=== PATIENT | female | born 1995 | race Caucasian/White ===

== ENCOUNTER → 2019-04-25 | Outpatient (REF) | payer OTHER | LOC: M SFHCLERA 13:18 | PROVIDERS: ATTEND Physician Assistant | DX: J02.9 Acute pharyngitis, unspecified (principal) ==

== ENCOUNTER 2021-02-06 16:21 | Emergency (ER) | payer OTHER ==
[~2021-02-06] VITALS: Ht 175.3 cm; Wt 72.3 kg
[2021-02-06 16:23] VITALS: BP 134/90
--- OUTSIDE RECORDS SUMMARY | 2021-02-06 16:28 | CCD ---
Author Author [facility] Organization [facility] Address Unknown Phone Unavailable Care Team Providers Care Textile Engraver Name Role Phone Maring, Jimmy PA Unavailable Unavailable Maring, Jimmy PA Unavailable Unavailable Maring, Jimmy PA Unavailable Unavailable Maring, Jimmy PA Unavailable Unavailable Maring, Jimmy PA Unavailable Unavailable Maring, Jimmy PA Unavailable Unavailable Maring, Jimmy PA Unavailable Unavailable Maring, Jimmy PA Unavailable Unavailable Maring, Jimmy PA Unavailable Unavailable Maring, Jimmy PA Unavailable Unavailable Maring, Jimmy PA Unavailable Unavailable Maring, Jimmy PA Unavailable Unavailable Maring, Jimmy PA Unavailable Unavailable Maring, Jimmy PA Unavailable Unavailable Maring, Jimmy PA Unavailable Unavailable Maring, Jimmy PA Unavailable Unavailable RICHIE, A. RESEARCH CHEF ELISA Unavailable [phone] RICHIE, A. RESEARCH CHEF ELISA Unavailable [phone] RICHIE, A. RESEARCH CHEF ELISA Unavailable [phone] RICHIE, A. RESEARCH CHEF ELISA Unavailable [phone] RICHIE, A. RESEARCH CHEF ELISA Unavailable [phone] RICHIE, A. RESEARCH CHEF ELISA Unavailable [phone] RICHIE, A. RESEARCH CHEF ELISA Unavailable [phone] RICHIE, A. RESEARCH CHEF ELISA Unavailable [phone] RICHIE, A. RESEARCH CHEF ELISA Unavailable [phone] RICHIE, A. RESEARCH CHEF ELISA Unavailable [phone] RICHIE, A. RESEARCH CHEF ELISA Unavailable [phone] RICHIE, A. RESEARCH CHEF ELISA Unavailable [phone] RICHIE, A. RESEARCH CHEF ELISA Unavailable [phone] RICHIE, A. RESEARCH CHEF ELISA Unavailable [phone] RICHIE, A. RESEARCH CHEF ELISA Unavailable [phone] RICHIE, A. RESEARCH CHEF ELISA Unavailable [phone] Re-disclosure Warning The records that you are about to access may contain information from federally-assisted alcohol or drug abuse programs. If such information is present, then the following federally mandated warning applies: This information has been disclosed to you from records protected by federal confidentiality rules (42 CFR part 2). The federal rules prohibit you from making any further disclosure of this information unless further disclosure is expressly permitted by the written consent of the person to whom it pertains or as otherwise permitted by 42 CFR part 2. A general authorization for the release of medical or other information is NOT sufficient for this purpose. The Federal rules restrict any use of the information to criminally investigate or prosecute any alcohol or drug abuse patient.The records that you are about to access may contain highly sensitive health information, the redisclosure of which is protected by Article 27-F of the [facility] Public Health law. If you continue you may have access to information: Regarding HIV / AIDS; Provided by facilities licensed or operated by the [facility] Office of Mental Health; or Provided by the [facility] Office for People With Developmental Disabilities. If such information is present, then the following [facility] mandated warning applies: This information has been disclosed to you from confidential records which are protected by state law. State law prohibits you from making any further disclosure of this information without the specific written consent of the person to whom it pertains, or as otherwise permitted by law. Any unauthorized further disclosure in violation of state law may result in a fine or nursing home sentence or both. A general authorization for the release of medical or other information is NOT sufficient authorization for further disc losure. Family History Family Member Name Family Member Gender Family Member Status Date o f Status Description Data Source(s) Unknown Condition [facility] Unknown Unknown Problem [facility] ([facility]) Encounters Encounter Providers Location Date Indications Data Source(s ) Outpatient Attender: ELISA QUIROZ 01/20 02:38:20 PM EST - 02/06/2021 03:40:30 PM EST [facility] ([facility] ) Outpatient Attender: Jimmy CAROLINA 10/15/19 09:05:32 AM EDT - 10/14/2020 09:38:46 AM EDT [facility] ([facility] ) [facility] [address] [place] [phone] 04/10/2020 12:00:00 AM EST [email or web address] ([facility]) Medications No Information Insurance Providers Payer name Policy type / Coverage type Policy ID Covered democrat ID Covered democrat's relationship to vazquez Policy Vazquez Plan Information [employer] CHP P [id number] S [id number] [employer] CHP P [id number] S [id number] [employer] CHP P [id number] S [id number] [employer] [place] [place] WorkComp Health Claim [id number] Employee [id number] Workers Comp I- FA WorkComp Health Claim [id number] Self [id number] [facility] Commercial Insurance Co. [id number] Self [id number] [facility] [id number] SP [id number] [facility] Commercial [id number] Self EX[employer]LL[employer] BCBS P [id number] S [id number] [facility] HEALTH INSURANCE COMPANY-O/P [id number] 18 [id number] BLUE CROSS BLUE SHIELD-O/P [id number] 18 [id number] Sliding Fee Scale S none S no ne [place] PPO 302/307 [id number] SP [id number] REPLACED BY [facility] [id number] SP [id number] [facility] Health Maintenance Organization (HMO) [id number] Self [id number] SELF PAY ONLY UNAVAILABLE SP UNAV AILABLE [facility] [id number] SP [id number] O BLUE [id number] SP [id number] Problems, Conditions, and Diagnoses No Information Surgeries/Procedures No Information Results No Information Social History No Information
--- OUTSIDE RECORDS SUMMARY | 2021-02-06 18:46 | CCD ---
Author Author [facility] Organization [facility] Address Unknown Phone Unavailable Care Team Providers Care Therapeutic Assistant Name Role Phone Maring, Jimmy PA Unavailable [...] Maring, Jimmy PA Unavailable Unavailable RICHIE, A. AIR HOLE DRILLER ELISA Unavailable [phone] RICHIE, A. AIR HOLE DRILLER ELISA Unavailable [phone] RICHIE, A. AIR HOLE DRILLER ELISA Unavailable [phone] RICHIE, A. AIR HOLE DRILLER ELISA Unavailable [phone] RICHIE, A. AIR HOLE DRILLER ELISA Unavailable [phone] RICHIE, A. AIR HOLE DRILLER ELISA Unavailable [phone] RICHIE, A. AIR HOLE DRILLER ELISA Unavailable [phone] RICHIE, A. AIR HOLE DRILLER ELISA Unavailable [phone] RICHIE, A. AIR HOLE DRILLER ELISA Unavailable [phone] RICHIE, A. AIR HOLE DRILLER ELISA Unavailable [phone] RICHIE, A. AIR HOLE DRILLER ELISA Unavailable [phone] RICHIE, A. AIR HOLE DRILLER ELISA Unavailable [phone] RICHIE, A. AIR HOLE DRILLER ELISA Unavailable [phone] RICHIE, A. AIR HOLE DRILLER ELISA Unavailable [phone] RICHIE, A. AIR HOLE DRILLER ELISA Unavailable [phone] RICHIE, A. AIR HOLE DRILLER ELISA Unavailable [phone] Re-disclosure Warning The [...] is protected by Article 27-F of the [facility] Public Health law. If you continue you may have access to information: Regarding HIV / AIDS; Provided by facilities licensed or operated by the [facility] Office of Mental Health; or Provided by the [facility] Office for People With Developmental Disabilities. If such information is present, then the following [facility] mandated warning applies: This information has been [...] law may result in a fine or shelter sentence or both. A general authorization for the release of medical or other information is NOT sufficient authorization for further disc losure. Family History Family Member Name Family Member Gender Family Member Status Date o f Status Description Data Source(s) Unknown Condition [facility] Unknown Unknown Problem MEDENT ([facility] Encounters Encounter Providers Location Date Indications Data Source(s ) Outpatient Attender: ELISA QUIROZ 01/20 02:38:20 PM EST - 02/06/2021 03:40:30 PM EST [facility] ([facility] ) Outpatient Attender: Jimmy CAROLINA 10/15/19 09:05:32 AM EDT - 10/14/2020 09:38:46 AM EDT [facility] ([facility] ) [facility] D[facility] [address] [place] [phone] 04/10/2020 12:00:00 AM EST eCW1 ([facility]) Medications No Information Insurance Providers Payer name Policy type / Coverage type Policy ID Covered constitution party ID Covered constitution party's relationship to vazquez Policy Vazquez Plan Information [employer] CHP P [id number] S [id number] [employer] CHP P [id number] S [id number] [employer] CHP P [id number] S [id number] [employer] [place] WorkComp Health Claim [id number] Employee [id number] Workers Comp I- FA WorkComp Health Claim [id number] Self [id number] [facility] Commercial Insurance Co. [id number] Self [id number] [facility] Commercial [id number] Self [employer] BCBS P [id number] S [id number] [facility] HEALTH INSURANCE COMPANY-O/P [id number] 18 [id number] BLUE CROSS BLUE SHIELD-O/P [id number] 18 [id number] Sliding Fee Scale S none S no ne BCBS [place] PPO 302/307 [id number] SP [id number] [facility] [id number] SP [id number] [facility] Health Maintenance Organization (HMO) [id number] Self [id number] SELF PAY ONLY UNAVAILABLE SP UNAV AILABLE [facility] [id number] SP [id number] [facility] BLUE [id number] SP [id number] [facility] [id number] SP [id number] Problems, Conditions, and Diagnoses No Information Surgeries/Procedures No Information Results No Information Social History No Information
== END 2021-02-06 22:05 | disposition left against medical advice (07) ==
LOC: M ED 16:21
DX: Z53.21 Procedure and treatment not carried out due to patient leaving prior to being seen by health care provider (principal)

== ENCOUNTER → 2021-12-01 | Outpatient (CLI) | payer OTHER | LOC: M WUC 14:01 | PROVIDERS: ATTEND Physician Assistant | DX: J20.9 Acute bronchitis, unspecified (principal); Z72.0 Tobacco use ==

== ENCOUNTER 2023-02-16 13:19 | Emergency (ER) | payer OTHER ==
[~2023-02-16] VITALS: Ht 177.8 cm; Wt 77.6 kg
[2023-02-16] MEDS ORDERED: IBUPROFEN 800 MG TAB PO ONE (16:35)
[2023-02-16 16:40] VITALS: BP 118/78; TEMP 97; O2SAT 100
== END 2023-02-16 17:21 | disposition home or self-care (01) ==
LOC: M ED 13:19
DX: S46.811A Strain of other muscles, fascia and tendons at shoulder and upper arm level, right arm, initial encounter (principal); F17.210 Nicotine dependence, cigarettes, uncomplicated; Z88.1 Allergy status to other antibiotic agents; Z91.013 Allergy to seafood

== ENCOUNTER 2023-09-15 15:35 | Emergency (ER) | payer OTHER ==
[~2023-09-15] VITALS: Ht 177.8 cm; Wt 79.4 kg
[2023-09-15] MEDS ORDERED: PRED20TA PO (16:07)
[2023-09-15 18:07] VITALS: BP 127/82; TEMP 98.4; O2SAT 100
== END 2023-09-15 18:10 | disposition home or self-care (01) ==
LOC: M ED 15:35
DX: T17.920A Food in respiratory tract, part unspecified causing asphyxiation, initial encounter (principal); F17.210 Nicotine dependence, cigarettes, uncomplicated; Z88.1 Allergy status to other antibiotic agents; Z91.013 Allergy to seafood; Z79.52 Long term (current) use of systemic steroids

== ENCOUNTER → 2024-06-14 | Outpatient (REF) | payer OTHER ==
[~2024-06-14] MED LIST: PRED20TA PO
== END ==
LOC: M LAB REF 12:46
PROVIDERS: ATTEND Physician Assistant
DX: B34.9 Viral infection, unspecified (principal)